=== PATIENT | male | born 1970 | race Two or more races ===

== ENCOUNTER 2023-09-08 23:52 | Emergency (ER) | payer OTHER ==
[~2023-09-08] VITALS: Ht 188 cm; Wt 115.2 kg
[~2023-09-08 23:52] MED LIST: WELLBUTRIN SR200 MG PO
== END 2023-09-09 | disposition left against medical advice (07) ==
LOC: ER 23:53
DX: Z53.21 Procedure and treatment not carried out due to patient leaving prior to being seen by health care provider (principal)